=== PATIENT | male | born 1950 | race African-American/Black ===

== ENCOUNTER 2016-09-09 05:48 | Inpatient (IN) | payer MEDICARE ==
[~2016-09-09] VITALS: Ht 172.7 cm; Wt 67.9 kg
[2016-09-09] MEDS ORDERED: NIFE30TA98 PO (06:45)
[2016-09-09] MEDS ORDERED: DOXY100C PO (06:45)
[2016-09-09] MEDS ORDERED: EPOE10I SQ (06:45)
[2016-09-09] MEDS ORDERED: LEVO250T58 PO (06:45)
[2016-09-09] MEDS ORDERED: CARV12 PO (06:45)
[2016-09-09] MEDS ORDERED: BUME1TAB30 PO (06:45)
[2016-09-09] MEDS ORDERED: INSU100V SQ (06:45)
[2016-09-09] MEDS ORDERED: IPRA3AMP4 NEB (06:45)
[2016-09-09] MEDS ORDERED: TAMS0.4C32 PO (06:45)
[2016-09-09] MEDS ORDERED: PANT40TA25 PO (06:45)
[2016-09-09] MEDS ORDERED: SERT50TA12 PO (06:45)
[2016-09-09] MEDS ORDERED: MIRT15 PO (06:45)
[2016-09-09] MEDS ORDERED: VITAD5000 PO (06:45)
[2016-09-09 06:51] LABS: EOSINOPHILS % (AUTO) 1.3 % (1.0-6.0); HEMATOCRIT 30.3 % (41-53); HEMOGLOBIN 9.6 g/dL (13.5-17.5); LYMPHOCYTES # (AUTO) 0.1 K/uL (1.0-4.8); LYMPHOCYTES % (AUTO) 3.4 % (22.0-44.0); MEAN CORPUSCULAR HGB CONC 31.6 G/dL (31.0-37.0); MEAN CORPUSCULAR VOLUME 92 fL (80-100); MONOCYTES # (AUTO) 0.4 K/uL (0.1-1.0); MONOCYTES % (AUTO) 9.9 % (2.0-9.0); NEUTROPHILS # (AUTO) 3.7 K/uL (1.8-7.7); NEUTROPHILS % (AUTO) 85.4 % (40.0-70.0); PLATELET COUNT (AUTO) 60 K/uL (150-450); RED CELL DISTRIBUTION WIDTH 16.3 % (11.5-14.5); WHITE BLOOD COUNT (AUTO) 4.4 K/uL (4.5-11.0)
[2016-09-09 07:00] LABS: INR 1.2 (0.9-1.1); PROTHROMBIN TIME 12.8 SEC (9.4-11.6)
[2016-09-09 07:08] LABS: TROPONIN I 0.09 ng/mL (0.00-0.05)
[2016-09-09 07:23] LABS: ALANINE AMINOTRANSFERASE 27 U/L (12-78); ALBUMIN 2.3 g/dL (3.4-5.0); ANION GAP 9 mmol/L (8-16); ASPARTATE AMINOTRANSFERASE 28 U/L (15-37); BILIRUBIN,TOTAL 0.8 mg/dL (0.1-1.0); CARBON DIOXIDE 28 mmol/L (22-29); CHLORIDE 100 mmol/L (98-107); CREATINE KINASE MB 10.8 ng/mL (0-5); CREATINE KINASE, TOTAL 100 U/L (39-308); CREATININE 4.37 mg/dL (0.60-1.30); GLOMERULAR FILTR. RATE CALC 16 mL/min (>60); SODIUM SERUM 137 mmol/L (136-145); TOTAL PROTEIN, SERUM 5.3 g/dL (6.4-8.2); UREA NITROGEN, BLOOD 37 mg/dL (7-18)
[2016-09-09 07:24] LABS: B-TYPE NATRIURETIC PEPTIDE 97 pg/mL (0-100)
[2016-09-09 07:31] LABS: LACTIC ACID 2.1 mmol/L (0.4-2.0)
[2016-09-09] MEDS ORDERED: POTASSIUM CHLORIDE 20 MEQ ER TABLET PO ONE ×2 (07:45→21:30)
[2016-09-09] MEDS ORDERED: POTASSIUM CHL 10 MEQ/WATER 50 ML IV ONE (08:00)
[2016-09-09 08:01] LABS: GLUCOSE,POINT OF CARE 101 MG/DL (70-110)
[2016-09-09 08:02] LABS: ABG A-A DIFF O2 171.5 mmHg (10-20.0); ABG BASE EXCESS 1.3 mmol/L (-2.0-3.0); ABG HCO3 25.3 mmol/L (22.0-26.0); ABG OXYHEMOGLOBIN 95.2 % (94.0-100.0); ABG PCO2 48 mmHg (35-45); ABG PH 7.363 (7.35-7.450); TEMPERATURE, FAHRENHEIT, BG 98.6 FAHREN (96.0-98.6)
[2016-09-09 08:03] LABS: ALLEN TEST, BLOOD GAS Positive
[2016-09-09] MEDS ORDERED: IPRATROPIUM BROMIDE 0.5 MG/2.5 ML NEB SOLUTION NEB ONE (08:15)
[2016-09-09] MEDS ORDERED: ALBUTEROL SULFATE 2.5 MG/0.5 ML NEB SOLUTION NEB ONE (08:15)
[2016-09-09 08:45] LABS: REFLEX LACTIC ACID? YES YES
[2016-09-09] MEDS ORDERED: 0.9% SODIUM CHLORIDE 10 ML SYRINGE IVP PRN (09:45)
[2016-09-09] MEDS ORDERED: ACETAMINOPHEN 325 MG TABLET PO PRN ×2 (09:45→14:45)
[2016-09-09 09:57] LABS: GLUCOSE,POINT OF CARE 83 MG/DL (70-110)
[2016-09-09 12:40] VITALS: BP 132/59
[2016-09-09 13:00] LABS: ALBUMIN 2.4 g/dL (3.4-5.0); BILIRUBIN,TOTAL 0.8 mg/dL (0.1-1.0); CALCIUM, TOTAL 7.1 mg/dL (8.8-10.5); CREATININE 4.46 mg/dL (0.60-1.30); TOTAL PROTEIN, SERUM 5.5 g/dL (6.4-8.2)
[2016-09-09 13:03] LABS: POTASSIUM 2.1 mmol/L (3.5-5.1)
[2016-09-09] MEDS ORDERED: ALBUTEROL SULFATE 2.5 MG/0.5 ML NEB SOLUTION NEB PRN (14:45)
[2016-09-09] MEDS ORDERED: ZOLPIDEM TARTRATE 5 MG TABLET PO PRN (14:45)
[2016-09-09] MEDS ORDERED: HYDROCODONE/ACETAMINOPHEN 5-325 MG TABLET PO PRN (14:45)
[2016-09-09] MEDS ORDERED: BISACODYL 10 MG RECTAL RECTAL SUPPOSITORY PR PRN (14:45)
[2016-09-09] MEDS ORDERED: POTASSIUM CHLORIDE 10% 40 MEQ/30 ML LIQUID UDCUP PO ONE (15:00)
[2016-09-09] MEDS: LEVOFLOXACIN 500 MG TABLET PO SCH (16:39)
[2016-09-09] MEDS: HEPARIN SODIUM,PORCINE 5,000 UNITS/ML VIAL SQ SCH (16:39)
[2016-09-09 18:02] VITALS: BP 118/68
[2016-09-09] MEDS ORDERED: ATROPINE SULFATE 0.1 MG/ML 10 ML SYRINGE IVP ONE (18:13)
[2016-09-09] MEDS ORDERED: EPINEPHrine 1:10,000 [1 MG/10 ML] SYRINGE IVP ONE (18:13)
[2016-09-09 19:28] VITALS: BP 109/65
[2016-09-09] MEDS: IPRATROPIUM BROMIDE 0.5 MG/2.5 ML NEB SOLUTION NEB SCH (20:00)
[2016-09-09] MEDS: IPRATROPIUM BROMIDE 0.5 MG/2.5 ML NEB SOLUTION NEB PRN (20:47)
[2016-09-09] MEDS: ALBUTEROL SULFATE 2.5 MG/0.5 ML NEB SOLUTION NEB SCH (20:47)
[2016-09-09] MEDS: MIRTAZAPINE 15 MG TABLET PO SCH (22:04)
[2016-09-09] MEDS: DOXYCYCLINE 100 MG CAPSULE PO SCH (22:04)
[2016-09-09] MEDS: DOCUSATE SODIUM 100 MG CAPSULE PO SCH (22:04)
[2016-09-09 23:47] VITALS: BP 129/67
[2016-09-10] MEDS: HEPARIN SODIUM,PORCINE 5,000 UNITS/ML VIAL SQ SCH ×4 (00:19→23:33)
[2016-09-10] MEDS ORDERED: 0.9% SODIUM CHLORIDE 5 ML NEB SOLUTION NEB ONE (01:04)
[2016-09-10] MEDS: ALBUTEROL SULFATE 2.5 MG/0.5 ML NEB SOLUTION NEB SCH ×4 (01:04→19:47)
[2016-09-10] MEDS: IPRATROPIUM BROMIDE 0.5 MG/2.5 ML NEB SOLUTION NEB PRN ×2 (01:04→19:47)
[2016-09-10 01:06] LABS: GLUCOSE,POINT OF CARE 77 MG/DL (70-110)
[2016-09-10] MEDS: IPRATROPIUM BROMIDE 0.5 MG/2.5 ML NEB SOLUTION NEB SCH ×4 (01:17→19:47)
[2016-09-10 03:42] VITALS: BP 108/69
[2016-09-10] MEDS: MORPHINE SULFATE 4 MG/ML SYRINGE IVP PRN (03:44)
[2016-09-10 06:39] LABS: BASOPHILS % (AUTO) 0.1 % (0.0-2.0); EOSINOPHILS % (AUTO) 0.3 % (1.0-6.0); HEMATOCRIT 29.7 % (41-53); HEMOGLOBIN 9.5 g/dL (13.5-17.5); LYMPHOCYTES # (AUTO) 0.2 K/uL (1.0-4.8); LYMPHOCYTES % (AUTO) 4.8 % (22.0-44.0); MEAN CORPUSCULAR HEMOGLOBIN 29.2 pg (26.0-34.0); MEAN CORPUSCULAR HGB CONC 32.1 G/dL (31.0-37.0); MEAN CORPUSCULAR VOLUME 91 fL (80-100); MONOCYTES # (AUTO) 0.4 K/uL (0.1-1.0); MONOCYTES % (AUTO) 9.2 % (2.0-9.0); NEUTROPHILS # (AUTO) 3.7 K/uL (1.8-7.7); PLATELET COUNT (AUTO) 52 K/uL (150-450); RED BLOOD CELL COUNT(AUTO) 3.26 MIL/uL (4.50-5.90); RED CELL DISTRIBUTION WIDTH 16.1 % (11.5-14.5); WHITE BLOOD COUNT (AUTO) 4.4 K/uL (4.5-11.0)
[2016-09-10 07:01] LABS: NEUTROPHILS % (AUTO) 85.6 % (40.0-70.0)
[2016-09-10 07:07] LABS: ALBUMIN 2.3 g/dL (3.4-5.0); BILIRUBIN,TOTAL 0.8 mg/dL (0.1-1.0); CALCIUM, TOTAL 7.1 mg/dL (8.8-10.5); CREATININE 5.33 mg/dL (0.60-1.30); TOTAL PROTEIN, SERUM 5.3 g/dL (6.4-8.2)
[2016-09-10 07:12] LABS: POTASSIUM 2.4 mmol/L (3.5-5.1)
[2016-09-10 07:13] VITALS: BP 96/67
[2016-09-10] MEDS ORDERED: POTASSIUM CHLORIDE 20 MEQ ER TABLET PO ONE (08:45)
[2016-09-10] MEDS: DOCUSATE SODIUM 100 MG CAPSULE PO SCH ×2 (09:00→20:58)
[2016-09-10] MEDS ORDERED: PANTOPRAZOLE SODIUM 40 MG/VIAL IVP SCH (09:00)
[2016-09-10] MEDS: BUMETANIDE 1 MG TABLET PO SCH (09:38)
[2016-09-10] MEDS: TAMSULOSIN HCL 0.4 MG CAPSULE PO SCH (09:38)
[2016-09-10] MEDS: PANTOPRAZOLE SODIUM 40 MG DR TABLET PO SCH (09:38)
[2016-09-10] MEDS: LEVOFLOXACIN 500 MG TABLET PO SCH (09:39)
[2016-09-10] MEDS: SERTRALINE HCL 50 MG TABLET PO SCH (09:39)
[2016-09-10] MEDS: DOXYCYCLINE 100 MG CAPSULE PO SCH ×2 (09:39→21:13)
[2016-09-10 10:27] LABS: ABG A-A DIFF O2 387.9 mmHg (10-20.0); ABG BASE EXCESS -4.8 mmol/L (-2.0-3.0); ABG HCO3 20.3 mmol/L (22.0-26.0); ABG OXYHEMOGLOBIN 99.2 % (94.0-100.0); ABG PCO2 53 mmHg (35-45); ABG PH 7.246 (7.35-7.450); ALLEN TEST, BLOOD GAS Positive; TEMPERATURE, FAHRENHEIT, BG 97.7 FAHREN (96.0-98.6)
[2016-09-10] MEDS ORDERED: SODIUM CHLORIDE 0.9% 250 ML IV ONE ×2 (10:36→15:37)
[2016-09-10] MEDS ORDERED: SODIUM CHLORIDE 0.9% 500 ML IV ONE (10:51)
[2016-09-10] MEDS ORDERED: HEPARIN SODIUM,PORCINE 1,000 UNITS/ML VIAL ONE ×2 (11:08→11:19)
[2016-09-10] MEDS ORDERED: HEPARIN SODIUM,PORCINE 1,000 UNITS/ML VIAL IVP ONE ×2 (11:30)
[2016-09-10 14:26] LABS: EOSINOPHILS % (AUTO) 0.6 % (1.0-6.0); HEMOGLOBIN 10.2 g/dL (13.5-17.5); LYMPHOCYTES # (AUTO) 0.2 K/uL (1.0-4.8); LYMPHOCYTES % (AUTO) 5.7 % (22.0-44.0); MEAN CORPUSCULAR HGB CONC 32.1 G/dL (31.0-37.0); MEAN CORPUSCULAR VOLUME 91 fL (80-100); MONOCYTES # (AUTO) 0.2 K/uL (0.1-1.0); MONOCYTES % (AUTO) 5.6 % (2.0-9.0); NEUTROPHILS # (AUTO) 2.4 K/uL (1.8-7.7); PLATELET COUNT (AUTO) 53 K/uL (150-450); RED BLOOD CELL COUNT(AUTO) 3.53 MIL/uL (4.50-5.90); RED CELL DISTRIBUTION WIDTH 16.2 % (11.5-14.5); WHITE BLOOD COUNT (AUTO) 2.7 K/uL (4.5-11.0)
[2016-09-10 14:28] LABS: NEUTROPHILS % (AUTO) 88.1 % (40.0-70.0)
[2016-09-10 14:37] LABS: ANION GAP 15 mmol/L (8-16); CARBON DIOXIDE 22 mmol/L (22-29); CHLORIDE 99 mmol/L (98-107); CREATININE 5.58 mg/dL (0.60-1.30); GLOMERULAR FILTR. RATE CALC 12 mL/min (>60); PHOSPHORUS 6.3 mg/dL (2.5-4.9); SODIUM SERUM 136 mmol/L (136-145); UREA NITROGEN, BLOOD 54 mg/dL (7-18)
[2016-09-10 14:41] LABS: POTASSIUM 2.2 mmol/L (3.5-5.1)
[2016-09-10 15:30] LABS: LACTIC ACID 2.1 mmol/L (0.4-2.0)
[2016-09-10] MEDS: POTASSIUM CHL 10 MEQ/WATER 50 ML IV SCH ×6 (15:54→22:48)
[2016-09-10 16:20] LABS: REFLEX LACTIC ACID? YES YES
[2016-09-10 17:33] LABS: GLUCOSE,POINT OF CARE 84 MG/DL (70-110)
[2016-09-10] MEDS ORDERED: VECURONIUM BROMIDE 10 MG/VIAL IVP ONE (17:51)
[2016-09-10] MEDS: DEXTROSE 50%-WATER 25 GM/50 ML SYRINGE IVP PRN (18:15)
[2016-09-10 19:02] LABS: GLUCOSE,POINT OF CARE 84 MG/DL (70-110)
[2016-09-10 19:37] LABS: GLUCOSE,POINT OF CARE 87 MG/DL (70-110)
[2016-09-10 20:00] VITALS: BP 85/40
[2016-09-10] MEDS: PROPOFOL 1000 MG/ISO-OSM 100 ML IV PRN (20:29)
[2016-09-10] MEDS: NOREPINEPHRINE 4 MG/D5%-WATER 250 ML IV PRN (20:37)
[2016-09-10] MEDS: MIRTAZAPINE 15 MG TABLET PO SCH (21:13)
[2016-09-10 21:20] LABS: CALCIUM, TOTAL 7.1 mg/dL (8.8-10.5); CREATININE 5.91 mg/dL (0.60-1.30); POTASSIUM 3.1 mmol/L (3.5-5.1)
[2016-09-10] MEDS: FentaNYL CITRATE PF 500 MCG in DEXTROSE 5%-WATER 90 ML IV PRN (21:44)
[2016-09-10] MEDS ORDERED: PNEUMOCOCCAL VACCINE POLYVALENT 0.5 ML VIAL [PPSV23] IM ONE (23:45)
[2016-09-10] MEDS: INSULIN ASPART 100 UNITS/ML SQ PRN (23:45)
[2016-09-11] VITALS: BP 105/40
[2016-09-11] MEDS ORDERED: IOVERSOL 350 MG/ML 100 ML VIAL ONE (00:08)
[2016-09-11 01:37] LABS: GLUCOSE COMMENT 1 Juice/Food/D50 Given; GLUCOSE,POINT OF CARE 66 MG/DL (70-110)
[2016-09-11] MEDS: PROPOFOL 1000 MG/ISO-OSM 100 ML IV PRN ×2 (01:48→08:35)
[2016-09-11] MEDS: IPRATROPIUM BROMIDE 0.5 MG/2.5 ML NEB SOLUTION NEB PRN ×2 (02:36→09:06)
[2016-09-11] MEDS: ALBUTEROL SULFATE 2.5 MG/0.5 ML NEB SOLUTION NEB SCH ×4 (02:36→19:35)
[2016-09-11 04:00] VITALS: BP 106/42
[2016-09-11] MEDS: NOREPINEPHRINE 4 MG/D5%-WATER 250 ML IV PRN ×2 (04:58→17:44)
[2016-09-11 05:07] LABS: EOSINOPHILS % (AUTO) 0.2 % (1.0-6.0); HEMATOCRIT 29.9 % (41-53); HEMOGLOBIN 9.6 g/dL (13.5-17.5); LYMPHOCYTES # (AUTO) 0.3 K/uL (1.0-4.8); MEAN CORPUSCULAR HEMOGLOBIN 29.1 pg (26.0-34.0); MEAN CORPUSCULAR HGB CONC 32.1 G/dL (31.0-37.0); MEAN CORPUSCULAR VOLUME 91 fL (80-100); MONOCYTES # (AUTO) 0.7 K/uL (0.1-1.0); MONOCYTES % (AUTO) 10.6 % (2.0-9.0); NEUTROPHILS # (AUTO) 5.7 K/uL (1.8-7.7); PLATELET COUNT (AUTO) 49 K/uL (150-450); RED CELL DISTRIBUTION WIDTH 15.7 % (11.5-14.5); WHITE BLOOD COUNT (AUTO) 6.7 K/uL (4.5-11.0)
[2016-09-11] MEDS: INSULIN ASPART 100 UNITS/ML SQ PRN ×2 (05:13→23:35)
[2016-09-11 05:16] LABS: NEUTROPHILS % (AUTO) 85.2 % (40.0-70.0)
[2016-09-11 05:18] LABS: ALBUMIN 2.1 g/dL (3.4-5.0); CREATININE 5.95 mg/dL (0.60-1.30)
[2016-09-11 05:18] LABS: GLUCOSE,POINT OF CARE 66 MG/DL (70-110)
[2016-09-11 05:18] LABS: GLUCOSE,POINT OF CARE 98 MG/DL (70-110)
[2016-09-11 05:18] LABS: GLUCOSE,POINT OF CARE 126 MG/DL (70-110)
[2016-09-11 05:18] LABS: GLUCOSE,POINT OF CARE 130 MG/DL (70-110)
[2016-09-11 08:00] VITALS: BP 101/36
[2016-09-11] MEDS: IPRATROPIUM BROMIDE 0.5 MG/2.5 ML NEB SOLUTION NEB SCH ×3 (08:00→19:35)
[2016-09-11] MEDS: HEPARIN SODIUM,PORCINE 5,000 UNITS/ML VIAL SQ SCH ×3 (08:00→23:36)
[2016-09-11] MEDS: DOXYCYCLINE 100 MG CAPSULE PO SCH ×2 (08:34→20:25)
[2016-09-11] MEDS: PANTOPRAZOLE SODIUM 40 MG DR TABLET PO SCH (08:34)
[2016-09-11] MEDS: DOCUSATE SODIUM 100 MG CAPSULE PO SCH ×2 (08:34→20:16)
[2016-09-11] MEDS: BUMETANIDE 1 MG TABLET PO SCH (08:34)
[2016-09-11] MEDS: TAMSULOSIN HCL 0.4 MG CAPSULE PO SCH (08:34)
[2016-09-11] MEDS: CHOLECALCIFEROL (VIT D3) 5,000 UNITS CAPSULE PO SCH (08:34)
[2016-09-11] MEDS: LEVOFLOXACIN 500 MG TABLET PO SCH (08:34)
[2016-09-11] MEDS: EPOETIN ALFA 10,000 UNITS/ML VIAL SQ SCH (08:35)
[2016-09-11] MEDS: SERTRALINE HCL 50 MG TABLET PO SCH (08:35)
[2016-09-11] MEDS ORDERED: ALBUMIN HUMAN 25%-25GM/100ML 100 ML IV PRN (11:30)
[2016-09-11] MEDS ORDERED: POTASSIUM CHLORIDE 10% 40 MEQ/30 ML LIQUID UDCUP NG ONE (11:30)
[2016-09-11 12:00] VITALS: BP 113/26
[2016-09-11] MEDS ORDERED: SODIUM CHLORIDE 0.9% 1,000 ML IV ONE (13:33)
[2016-09-11] MEDS ORDERED: LEVO500 PO (14:09)
[2016-09-11] MEDS: FentaNYL CITRATE PF 500 MCG in DEXTROSE 5%-WATER 90 ML IV PRN (14:35)
[2016-09-11 16:00] VITALS: BP 112/44
[2016-09-11] MEDS ORDERED: HEPARIN SODIUM,PORCINE 1,000 UNITS/ML VIAL IVP ONE (17:16)
[2016-09-11 18:12] LABS: GLUCOSE,POINT OF CARE 89 MG/DL (70-110)
[2016-09-11 19:08] LABS: GLUCOSE,POINT OF CARE 100 MG/DL (70-110)
[2016-09-11 19:21] LABS: GLUCOSE,POINT OF CARE 115 MG/DL (70-110)
[2016-09-11 20:00] VITALS: BP 153/45
[2016-09-11] MEDS: MIRTAZAPINE 15 MG TABLET PO SCH (20:25)
[2016-09-12] VITALS (7 sets, daily range): BP systolic 86–140; BP diastolic 32–51
[2016-09-12] MEDS: FentaNYL CITRATE PF 500 MCG in DEXTROSE 5%-WATER 90 ML IV PRN (01:37)
[2016-09-12] MEDS: LORazepam 2 MG/ML VIAL IVP PRN ×2 (01:44→07:54)
[2016-09-12] MEDS: IPRATROPIUM BROMIDE 0.5 MG/2.5 ML NEB SOLUTION NEB SCH ×4 (01:54→19:19)
[2016-09-12] MEDS: ALBUTEROL SULFATE 2.5 MG/0.5 ML NEB SOLUTION NEB SCH ×4 (01:54→19:19)
[2016-09-12] MEDS ORDERED: SODIUM CHLORIDE 0.9% 250 ML IV ONE (05:00)
[2016-09-12 05:17] LABS: EOSINOPHILS % (AUTO) 1.7 % (1.0-6.0); HEMATOCRIT 28.4 % (41-53); HEMOGLOBIN 9.1 g/dL (13.5-17.5); LYMPHOCYTES # (AUTO) 0.2 K/uL (1.0-4.8); LYMPHOCYTES % (AUTO) 4.9 % (22.0-44.0); MEAN CORPUSCULAR HEMOGLOBIN 28.9 pg (26.0-34.0); MEAN CORPUSCULAR VOLUME 90 fL (80-100); MONOCYTES # (AUTO) 0.8 K/uL (0.1-1.0); MONOCYTES % (AUTO) 16.5 % (2.0-9.0); NEUTROPHILS # (AUTO) 3.8 K/uL (1.8-7.7); NEUTROPHILS % (AUTO) 76.9 % (40.0-70.0); PLATELET COUNT (AUTO) 48 K/uL (150-450); RED BLOOD CELL COUNT(AUTO) 3.14 MIL/uL (4.50-5.90); RED CELL DISTRIBUTION WIDTH 16.6 % (11.5-14.5)
[2016-09-12 05:35] LABS: ALBUMIN 2.1 g/dL (3.4-5.0); BILIRUBIN,TOTAL 0.8 mg/dL (0.1-1.0); CALCIUM, TOTAL 7.7 mg/dL (8.8-10.5); CREATININE 4.25 mg/dL (0.60-1.30); TOTAL PROTEIN, SERUM 5.1 g/dL (6.4-8.2)
[2016-09-12] MEDS: INSULIN ASPART 100 UNITS/ML SQ PRN (05:46)
[2016-09-12] MEDS: DOCUSATE SODIUM 100 MG CAPSULE PO SCH ×2 (07:29→20:44)
[2016-09-12] MEDS: HEPARIN SODIUM,PORCINE 5,000 UNITS/ML VIAL SQ SCH ×3 (07:29→20:48)
[2016-09-12] MEDS: TAMSULOSIN HCL 0.4 MG CAPSULE PO SCH (07:54)
[2016-09-12] MEDS: CHOLECALCIFEROL (VIT D3) 5,000 UNITS CAPSULE PO SCH (07:54)
[2016-09-12] MEDS: PANTOPRAZOLE SODIUM 40 MG DR TABLET PO SCH (07:54)
[2016-09-12] MEDS: LEVOFLOXACIN 500 MG TABLET PO SCH (07:54)
[2016-09-12] MEDS: DOXYCYCLINE 100 MG CAPSULE PO SCH ×2 (07:54→20:44)
[2016-09-12] MEDS: POVIDONE-IODINE 10% 120 ML SOLUTION TP SCH (07:55)
[2016-09-12] MEDS: SERTRALINE HCL 50 MG TABLET PO SCH (07:55)
[2016-09-12 08:12] LABS: GLUCOSE,POINT OF CARE 129 MG/DL (70-110)
[2016-09-12 08:16] LABS: GLUCOSE COMMENT 1 Received Meds; GLUCOSE,POINT OF CARE 154 MG/DL (70-110)
[2016-09-12] MEDS: POTASSIUM CHLORIDE 10% 40 MEQ/30 ML LIQUID UDCUP NG SCH ×3 (13:04→20:44)
[2016-09-12 14:18] LABS: ABG A-A DIFF O2 91.6 mmHg (10-20.0); ABG BASE EXCESS -3.5 mmol/L (-2.0-3.0); ABG HCO3 21.9 mmol/L (22.0-26.0); ABG OXYHEMOGLOBIN 97.7 % (94.0-100.0); ABG PCO2 29 mmHg (35-45); ABG PH 7.459 (7.35-7.450); TEMPERATURE, FAHRENHEIT, BG 98.6 FAHREN (96.0-98.6)
[2016-09-12] MEDS: NOREPINEPHRINE 4 MG/D5%-WATER 250 ML IV PRN (15:12)
[2016-09-12] MEDS: MIRTAZAPINE 15 MG TABLET PO SCH (23:18)
[2016-09-13] VITALS (8 sets, daily range): BP systolic 100–139; BP diastolic 41–59
[2016-09-13] MEDS: IPRATROPIUM BROMIDE 0.5 MG/2.5 ML NEB SOLUTION NEB SCH ×4 (02:31→19:46)
[2016-09-13] MEDS: ALBUTEROL SULFATE 2.5 MG/0.5 ML NEB SOLUTION NEB SCH ×4 (02:31→19:46)
[2016-09-13] MEDS: FentaNYL CITRATE PF 500 MCG in DEXTROSE 5%-WATER 90 ML IV PRN (02:59)
[2016-09-13] MEDS ORDERED: SODIUM CHLORIDE 0.9% 250 ML IV ONE (04:52)
[2016-09-13 05:04] LABS: BASOPHILS % (AUTO) 0.1 % (0.0-2.0); EOSINOPHILS # (AUTO) 0.06 K/uL (0.00-0.70); EOSINOPHILS % (AUTO) 1.83 % (1.0-6.0); HEMATOCRIT 25.1 % (41-53); HEMOGLOBIN 8.5 g/dL (13.5-17.5); LYMPHOCYTES # (AUTO) 0.2 K/uL (1.0-4.8); LYMPHOCYTES % (AUTO) 4.9 % (22.0-44.0); MEAN CORPUSCULAR HEMOGLOBIN 29.8 pg (26.0-34.0); MEAN CORPUSCULAR HGB CONC 33.8 G/dL (31.0-37.0); MEAN CORPUSCULAR VOLUME 88 fL (80-100); MONOCYTES # (AUTO) 0.4 K/uL (0.1-1.0); NEUTROPHILS # (AUTO) 2.5 K/uL (1.8-7.7); NEUTROPHILS % (AUTO) 81.2 % (40.0-70.0); RED BLOOD CELL COUNT(AUTO) 2.84 MIL/uL (4.50-5.90); RED CELL DISTRIBUTION WIDTH 16.4 % (11.5-14.5)
[2016-09-13 05:17] LABS: BILIRUBIN,TOTAL 0.6 mg/dL (0.1-1.0); CALCIUM, TOTAL 7.7 mg/dL (8.8-10.5); CREATININE 5.13 mg/dL (0.60-1.30); POTASSIUM 3.6 mmol/L (3.5-5.1); TOTAL PROTEIN, SERUM 5.1 g/dL (6.4-8.2)
[2016-09-13 07:32] LABS: PLATELET COUNT (AUTO) 28 K/uL (150-450)
[2016-09-13] MEDS: HEPARIN SODIUM,PORCINE 5,000 UNITS/ML VIAL SQ SCH ×2 (09:00→20:30)
[2016-09-13] MEDS: DOCUSATE SODIUM 100 MG CAPSULE PO SCH ×2 (09:00→20:30)
[2016-09-13] MEDS: POVIDONE-IODINE 10% 120 ML SOLUTION TP SCH (09:37)
[2016-09-13] MEDS ORDERED: CefTAZidime PENTAHYDRATE 1 GM in DEXTROSE 5%-WATER 50 ML IV SCH (09:45)
[2016-09-13] MEDS ORDERED: HEPARIN SODIUM,PORCINE 1,000 UNITS/ML VIAL IVP ONE ×3 (09:45→17:12)
[2016-09-13] MEDS ORDERED: VANCOMYCIN HCL 500 MG in DEXTROSE 5%-WATER 100 ML IV SCH (09:45)
[2016-09-13] MEDS ORDERED: VANCOMYCIN HCL 1 GM/D5% WATER 200 ML IV ONE (10:00)
[2016-09-13] MEDS ORDERED: VANCOMYCIN HCL 1 GM/D5% WATER 200 ML IV PRN (10:00)
[2016-09-13] MEDS ORDERED: SODIUM CHLORIDE 0.9% 2,000 ML IV ONE (11:09)
[2016-09-13 11:17] LABS: GLUCOSE,POINT OF CARE 109 MG/DL (70-110)
[2016-09-13 11:17] LABS: GLUCOSE,POINT OF CARE 132 MG/DL (70-110)
[2016-09-13 11:22] LABS: GLUCOSE,POINT OF CARE 114 MG/DL (70-110)
[2016-09-13] MEDS: TAMSULOSIN HCL 0.4 MG CAPSULE PO SCH (11:29)
[2016-09-13] MEDS: PANTOPRAZOLE SODIUM 40 MG DR TABLET PO SCH (11:30)
[2016-09-13] MEDS: CHOLECALCIFEROL (VIT D3) 5,000 UNITS CAPSULE PO SCH (11:30)
[2016-09-13] MEDS: EPOETIN ALFA 10,000 UNITS/ML VIAL SQ SCH (11:31)
[2016-09-13] MEDS: SERTRALINE HCL 50 MG TABLET PO SCH (11:31)
[2016-09-13 16:32] LABS: ABG A-A DIFF O2 76.1 mmHg (10-20.0); ABG BASE EXCESS -1.6 mmol/L (-2.0-3.0); ABG HCO3 23.3 mmol/L (22.0-26.0); ABG OXYHEMOGLOBIN 97.9 % (94.0-100.0); ABG PCO2 38 mmHg (35-45); ABG PH 7.405 (7.35-7.450); ALLEN TEST, BLOOD GAS Positive; TEMPERATURE, FAHRENHEIT, BG 97.9 FAHREN (96.0-98.6)
[2016-09-13 18:17] LABS: GLUCOSE,POINT OF CARE 123 MG/DL (70-110)
[2016-09-13 19:40] LABS: ABG A-A DIFF O2 32.4 mmHg (10-20.0); ABG BASE EXCESS -3.4 mmol/L (-2.0-3.0); ABG HCO3 21.9 mmol/L (22.0-26.0); ABG OXYHEMOGLOBIN 97.7 % (94.0-100.0); ABG PCO2 38 mmHg (35-45); ABG PH 7.379 (7.35-7.450); ALLEN TEST, BLOOD GAS NO; TEMPERATURE, FAHRENHEIT, BG 98.6 FAHREN (96.0-98.6)
[2016-09-13] MEDS: MIRTAZAPINE 15 MG TABLET PO SCH (20:30)
[2016-09-14] VITALS (8 sets, daily range): BP systolic 95–119; BP diastolic 38–82
[2016-09-14] MEDS: ALBUTEROL SULFATE 2.5 MG/0.5 ML NEB SOLUTION NEB SCH ×4 (02:17→19:17)
[2016-09-14] MEDS: IPRATROPIUM BROMIDE 0.5 MG/2.5 ML NEB SOLUTION NEB SCH ×4 (02:17→19:17)
[2016-09-14 04:57] LABS: GLUCOSE,POINT OF CARE 129 MG/DL (70-110)
[2016-09-14 04:57] LABS: GLUCOSE,POINT OF CARE 96 MG/DL (70-110)
[2016-09-14 05:37] LABS: EOSINOPHILS # (AUTO) 0.03 K/uL (0.00-0.70); EOSINOPHILS % (AUTO) 1.18 % (1.0-6.0); HEMATOCRIT 23.9 % (41-53); HEMOGLOBIN 7.9 g/dL (13.5-17.5); LYMPHOCYTES # (AUTO) 0.1 K/uL (1.0-4.8); LYMPHOCYTES % (AUTO) 4.2 % (22.0-44.0); MEAN CORPUSCULAR HGB CONC 33.2 G/dL (31.0-37.0); MEAN CORPUSCULAR VOLUME 90 fL (80-100); MONOCYTES # (AUTO) 0.3 K/uL (0.1-1.0); MONOCYTES % (AUTO) 9.6 % (2.0-9.0); NEUTROPHILS # (AUTO) 2.2 K/uL (1.8-7.7); PLATELET COUNT (AUTO) 22 K/uL (150-450); RED BLOOD CELL COUNT(AUTO) 2.65 MIL/uL (4.50-5.90); RED CELL DISTRIBUTION WIDTH 16.7 % (11.5-14.5); WHITE BLOOD COUNT (AUTO) 2.6 K/uL (4.5-11.0)
[2016-09-14 05:43] LABS: ALBUMIN 1.9 g/dL (3.4-5.0); BILIRUBIN,TOTAL 0.6 mg/dL (0.1-1.0); CALCIUM, TOTAL 7.9 mg/dL (8.8-10.5); CREATININE 3.68 mg/dL (0.60-1.30); TOTAL PROTEIN, SERUM 4.6 g/dL (6.4-8.2)
[2016-09-14 06:14] LABS: POTASSIUM 2.6 mmol/L (3.5-5.1)
[2016-09-14 06:18] LABS: GLUCOSE,POINT OF CARE 95 MG/DL (70-110)
[2016-09-14 06:18] LABS: GLUCOSE,POINT OF CARE 80 MG/DL (70-110)
[2016-09-14] MEDS: POTASSIUM CHL 10 MEQ/WATER 50 ML IV SCH ×4 (06:29→10:29)
[2016-09-14] MEDS ORDERED: POTASSIUM CHLORIDE 10% 40 MEQ/30 ML LIQUID UDCUP PO ONE (06:30)
[2016-09-14] MEDS: POVIDONE-IODINE 10% 120 ML SOLUTION TP SCH (08:06)
[2016-09-14] MEDS: HEPARIN SODIUM,PORCINE 5,000 UNITS/ML VIAL SQ SCH (08:06)
[2016-09-14] MEDS: DOCUSATE SODIUM 100 MG CAPSULE PO SCH ×2 (08:06→20:21)
[2016-09-14] MEDS: SERTRALINE HCL 50 MG TABLET PO SCH (09:00)
[2016-09-14] MEDS: CHOLECALCIFEROL (VIT D3) 5,000 UNITS CAPSULE PO SCH (09:00)
[2016-09-14] MEDS: PANTOPRAZOLE SODIUM 40 MG DR TABLET PO SCH (09:00)
[2016-09-14] MEDS: TAMSULOSIN HCL 0.4 MG CAPSULE PO SCH (09:00)
[2016-09-14 09:07] LABS: ABG A-A DIFF O2 27.1 mmHg (10-20.0); ABG BASE EXCESS -2.1 mmol/L (-2.0-3.0); ABG HCO3 22.8 mmol/L (22.0-26.0); ABG OXYHEMOGLOBIN 97.5 % (94.0-100.0); ABG PCO2 41 mmHg (35-45); ABG PH 7.373 (7.35-7.450); TEMPERATURE, FAHRENHEIT, BG 97.7 FAHREN (96.0-98.6)
[2016-09-14 09:08] LABS: ALLEN TEST, BLOOD GAS Positive
[2016-09-14] MEDS ORDERED: VANCOMYCIN HCL 1 GM/D5% WATER 200 ML IV ONE (10:00)
[2016-09-14 10:43] LABS: HEPATITIS C AB SCREEN <0.1 s/co ratio (0.0-0.9)
[2016-09-14] MEDS: MORPHINE SULFATE 4 MG/ML SYRINGE IVP PRN (11:05)
[2016-09-14] MEDS: PANTOPRAZOLE SODIUM 80 MG in SODIUM CHLORIDE 0.9% 100 ML IV SCH ×2 (12:15→22:49)
[2016-09-14] MEDS ORDERED: SODIUM CHLORIDE 0.9% 100 ML ONE (15:23)
[2016-09-14] MEDS ORDERED: IOVERSOL 350 MG/ML 100 ML VIAL ONE (15:23)
[2016-09-14] MEDS ORDERED: CefTAZidime PENTAHYDRATE 1 GM in DEXTROSE 5%-WATER 50 ML IV PRN (15:30)
[2016-09-14] MEDS ORDERED: CefTAZidime PENTAHYDRATE 1 GM in DEXTROSE 5%-WATER 50 ML IV ONE (16:00)
[2016-09-14 18:00] LABS: INR 1.2 (0.9-1.1); PROTHROMBIN TIME 12.6 SEC (9.4-11.6)
[2016-09-14] MEDS: DEXTROSE 50%-WATER 25 GM/50 ML SYRINGE IVP PRN ×2 (19:08→23:15)
[2016-09-14] MEDS ORDERED: ALBUMIN HUMAN 25%-25GM/100ML 100 ML IV PRN (20:00)
[2016-09-14] MEDS: MIRTAZAPINE 15 MG TABLET PO SCH (20:41)
[2016-09-14] MEDS ORDERED: DEXTROSE 5%-WATER 500 ML IV ONE (21:23)
[2016-09-14] MEDS: INSULIN ASPART 100 UNITS/ML SQ PRN (23:13)
[2016-09-14 23:17] LABS: GLUCOSE COMMENT 1 Received Meds; GLUCOSE,POINT OF CARE 68 MG/DL (70-110)
[2016-09-15] VITALS (8 sets, daily range): BP systolic 88–118; BP diastolic 35–55
[2016-09-15 00:16] LABS: GLUCOSE,POINT OF CARE 108 MG/DL (70-110)
[2016-09-15] MEDS: MORPHINE SULFATE 4 MG/ML SYRINGE IVP PRN (02:40)
[2016-09-15] MEDS: IPRATROPIUM BROMIDE 0.5 MG/2.5 ML NEB SOLUTION NEB SCH ×4 (02:47→19:35)
[2016-09-15] MEDS: ALBUTEROL SULFATE 2.5 MG/0.5 ML NEB SOLUTION NEB SCH ×4 (02:47→19:35)
[2016-09-15] MEDS: DEXTROSE 50%-WATER 25 GM/50 ML SYRINGE IVP PRN (04:41)
[2016-09-15 05:26] LABS: HEMATOCRIT 22.4 % (41-53); HEMOGLOBIN 7.5 g/dL (13.5-17.5); MEAN CORPUSCULAR HEMOGLOBIN 30.1 pg (26.0-34.0); MEAN CORPUSCULAR HGB CONC 33.6 G/dL (31.0-37.0); MEAN CORPUSCULAR VOLUME 90 fL (80-100); PLATELET COUNT (AUTO) 21 K/uL (150-450); RED CELL DISTRIBUTION WIDTH 16.7 % (11.5-14.5); WHITE BLOOD COUNT (AUTO) 2.9 K/uL (4.5-11.0)
[2016-09-15 05:29] LABS: ALBUMIN 2.2 g/dL (3.4-5.0); BILIRUBIN,TOTAL 0.6 mg/dL (0.1-1.0); CALCIUM, TOTAL 7.6 mg/dL (8.8-10.5); CREATININE 4.39 mg/dL (0.60-1.30); TOTAL PROTEIN, SERUM 4.7 g/dL (6.4-8.2)
[2016-09-15 05:48] LABS: GLUCOSE,POINT OF CARE 82 MG/DL (70-110)
[2016-09-15 05:48] LABS: GLUCOSE,POINT OF CARE 125 MG/DL (70-110)
[2016-09-15 05:48] LABS: GLUCOSE COMMENT 1 Received Meds; GLUCOSE,POINT OF CARE 52 MG/DL (70-110)
[2016-09-15 05:48] LABS: GLUCOSE COMMENT 1 Juice/Food/D50 Given; GLUCOSE,POINT OF CARE 65 MG/DL (70-110)
[2016-09-15] MEDS: INSULIN ASPART 100 UNITS/ML SQ PRN (05:50)
[2016-09-15 06:12] LABS: POTASSIUM 2.9 mmol/L (3.5-5.1)
[2016-09-15] MEDS: PANTOPRAZOLE SODIUM 80 MG in SODIUM CHLORIDE 0.9% 100 ML IV SCH ×2 (07:27→20:20)
[2016-09-15] MEDS: CHOLECALCIFEROL (VIT D3) 5,000 UNITS CAPSULE PO SCH (08:04)
[2016-09-15] MEDS: SERTRALINE HCL 50 MG TABLET PO SCH (08:04)
[2016-09-15] MEDS: TAMSULOSIN HCL 0.4 MG CAPSULE PO SCH (08:04)
[2016-09-15] MEDS: DOCUSATE SODIUM 100 MG CAPSULE PO SCH ×2 (08:04→21:00)
[2016-09-15] MEDS ORDERED: SODIUM CHLORIDE 0.9% 2,000 ML IV ONE (08:23)
[2016-09-15] MEDS: EPOETIN ALFA 10,000 UNITS/ML VIAL SQ SCH (09:14)
[2016-09-15] MEDS: POVIDONE-IODINE 10% 120 ML SOLUTION TP SCH (09:14)
[2016-09-15] MEDS ORDERED: HEPARIN SODIUM,PORCINE 1,000 UNITS/ML VIAL IVP ONE ×2 (09:30)
[2016-09-15 09:40] LABS: ALBUMIN (IFE & ELECTROPHOR) 2.4 g/dL (2.9-4.4); ALBUMIN/GLOBULIN RATIO (IFE) 1.3 (0.7-1.7); ALPHA-2 (IFE & PEP) 0.4 g/dL (0.4-1.0); IGG (IMMUNOFIXATION) 881 mg/dL (700-1600); M-SPIKE (IEP) Not Observed g/dL (Not Observed); TOTAL PROTEIN 4.4 g/dL (6.0-8.5)
[2016-09-15] MEDS ORDERED: SODIUM CITRATE 4% CATH FLUSH 5 ML SYRINGE IVP ONE ×2 (09:45)
[2016-09-15 09:59] LABS: BAND NEUTROPHILS % (MANUAL) 14 % (1-5); LYMPHOCYTES % (MANUAL) 10 % (22-44); RBC MORPHOLOGY COMMENT NORMAL RBC MORPH; TOTAL CELLS COUNTED 100
[2016-09-15] MEDS: [UNRECOGNIZED DRUG - REMARK] MISC SCH (14:00)
[2016-09-15 14:06] LABS: CALCIUM, TOTAL 8.2 mg/dL (8.8-10.5); CREATININE 2.32 mg/dL (0.60-1.30)
[2016-09-15 14:35] LABS: POTASSIUM 2.9 mmol/L (3.5-5.1)
[2016-09-15] MEDS: POTASSIUM CHL 10 MEQ/WATER 50 ML IV SCH ×2 (15:48→16:24)
[2016-09-15] MEDS: MIRTAZAPINE 15 MG TABLET PO SCH (21:20)
[2016-09-16] VITALS: BP 102/38
[2016-09-16] MEDS: IPRATROPIUM BROMIDE 0.5 MG/2.5 ML NEB SOLUTION NEB SCH ×4 (02:00→19:40)
[2016-09-16] MEDS: ALBUTEROL SULFATE 2.5 MG/0.5 ML NEB SOLUTION NEB SCH ×4 (02:00→19:40)
[2016-09-16 04:00] VITALS: BP 120/45
[2016-09-16 05:11] LABS: EOSINOPHILS % (AUTO) 0.6 % (1.0-6.0); HEMATOCRIT 22.8 % (41-53); HEMOGLOBIN 7.7 g/dL (13.5-17.5); LYMPHOCYTES # (AUTO) 0.2 K/uL (1.0-4.8); LYMPHOCYTES % (AUTO) 5.3 % (22.0-44.0); MEAN CORPUSCULAR HEMOGLOBIN 30.1 pg (26.0-34.0); MEAN CORPUSCULAR HGB CONC 33.7 G/dL (31.0-37.0); MEAN CORPUSCULAR VOLUME 90 fL (80-100); MONOCYTES # (AUTO) 0.3 K/uL (0.1-1.0); MONOCYTES % (AUTO) 9.9 % (2.0-9.0); NEUTROPHILS # (AUTO) 2.7 K/uL (1.8-7.7); NEUTROPHILS % (AUTO) 84.2 % (40.0-70.0); RED BLOOD CELL COUNT(AUTO) 2.55 MIL/uL (4.50-5.90); RED CELL DISTRIBUTION WIDTH 16.2 % (11.5-14.5); WHITE BLOOD COUNT (AUTO) 3.3 K/uL (4.5-11.0)
[2016-09-16 05:20] LABS: INR 1.4 (0.9-1.1); PROTHROMBIN TIME 14.4 SEC (9.4-11.6)
[2016-09-16] MEDS: PANTOPRAZOLE SODIUM 80 MG in SODIUM CHLORIDE 0.9% 100 ML IV SCH ×2 (05:29→15:29)
[2016-09-16 05:48] LABS: BILIRUBIN,TOTAL 0.8 mg/dL (0.1-1.0); CALCIUM, TOTAL 7.9 mg/dL (8.8-10.5); CREATININE 3.34 mg/dL (0.60-1.30); TOTAL PROTEIN, SERUM 4.8 g/dL (6.4-8.2)
[2016-09-16 06:08] LABS: POTASSIUM 2.5 mmol/L (3.5-5.1)
[2016-09-16] MEDS ORDERED: POTASSIUM CHLORIDE 20 MEQ ER TABLET PO ONE (07:00)
[2016-09-16 07:31] LABS: PLATELET COUNT (AUTO) 22 K/uL (150-450)
[2016-09-16 08:00] VITALS: BP 127/65
[2016-09-16] MEDS: POTASSIUM CHL 10 MEQ/WATER 50 ML IV SCH ×4 (08:34→10:30)
[2016-09-16] MEDS: TAMSULOSIN HCL 0.4 MG CAPSULE PO SCH (08:35)
[2016-09-16] MEDS: CHOLECALCIFEROL (VIT D3) 5,000 UNITS CAPSULE PO SCH (08:36)
[2016-09-16] MEDS: SERTRALINE HCL 50 MG TABLET PO SCH (08:36)
[2016-09-16] MEDS: DOCUSATE SODIUM 100 MG CAPSULE PO SCH ×2 (09:00→20:48)
[2016-09-16] MEDS: [UNRECOGNIZED DRUG - REMARK] MISC SCH (09:00)
[2016-09-16] MEDS: POVIDONE-IODINE 10% 120 ML SOLUTION TP SCH (09:03)
[2016-09-16 13:08] LABS: GLUCOSE,POINT OF CARE 71 MG/DL (70-110)
[2016-09-16 13:08] LABS: GLUCOSE,POINT OF CARE 105 MG/DL (70-110)
[2016-09-16 13:08] LABS: GLUCOSE,POINT OF CARE 89 MG/DL (70-110)
[2016-09-16 13:08] LABS: GLUCOSE COMMENT 1 Received Meds; GLUCOSE,POINT OF CARE 75 MG/DL (70-110)
[2016-09-16 14:06] LABS: GLUCOSE,POINT OF CARE 104 MG/DL (70-110)
[2016-09-16 15:06] VITALS: BP 136/61
[2016-09-16] MEDS ORDERED: SODIUM CHLORIDE 0.9% 100 ML ONE ×2 (15:17→15:48)
[2016-09-16] MEDS ORDERED: POTASSIUM CHL 10 MEQ/WATER 50 ML IV ONE ×2 (16:00→17:00)
[2016-09-16 18:32] LABS: GLUCOSE,POINT OF CARE 133 MG/DL (70-110)
[2016-09-16 19:44] VITALS: BP 114/70
[2016-09-16] MEDS: MIRTAZAPINE 15 MG TABLET PO SCH (20:48)
[2016-09-16 21:26] LABS: GLUCOSE,POINT OF CARE 120 MG/DL (70-110)
[2016-09-16 23:25] VITALS: BP 144/73
[2016-09-17] MEDS: PANTOPRAZOLE SODIUM 80 MG in SODIUM CHLORIDE 0.9% 100 ML IV SCH ×2 (02:04→15:08)
[2016-09-17] MEDS: ALBUTEROL SULFATE 2.5 MG/0.5 ML NEB SOLUTION NEB SCH ×4 (02:31→21:14)
[2016-09-17] MEDS: IPRATROPIUM BROMIDE 0.5 MG/2.5 ML NEB SOLUTION NEB SCH ×4 (02:31→21:14)
[2016-09-17 04:01] VITALS: BP 126/60
[2016-09-17] MEDS ORDERED: SODIUM CHLORIDE 0.9% 500 ML IV ONE (05:44)
[2016-09-17] MEDS ORDERED: VANCOMYCIN HCL 1 GM/D5% WATER 200 ML IV ONE (06:00)
[2016-09-17 08:00] LABS: ALBUMIN 1.9 g/dL (3.4-5.0); BILIRUBIN,TOTAL 0.7 mg/dL (0.1-1.0); CALCIUM, TOTAL 7.4 mg/dL (8.8-10.5); CREATININE 4.42 mg/dL (0.60-1.30); MAGNESIUM 1.4 mg/dL (1.80-2.40); TOTAL PROTEIN, SERUM 4.3 g/dL (6.4-8.2)
[2016-09-17 08:22] LABS: BASOPHILS % (AUTO) 0.1 % (0.0-2.0); EOSINOPHILS % (AUTO) 1.3 % (1.0-6.0); HEMATOCRIT 23.8 % (41-53); HEMOGLOBIN 7.9 g/dL (13.5-17.5); LYMPHOCYTES # (AUTO) 0.2 K/uL (1.0-4.8); LYMPHOCYTES % (AUTO) 5.7 % (22.0-44.0); MEAN CORPUSCULAR HEMOGLOBIN 29.9 pg (26.0-34.0); MEAN CORPUSCULAR HGB CONC 33.1 G/dL (31.0-37.0); MEAN CORPUSCULAR VOLUME 90 fL (80-100); MONOCYTES # (AUTO) 0.3 K/uL (0.1-1.0); MONOCYTES % (AUTO) 7.6 % (2.0-9.0); NEUTROPHILS # (AUTO) 3.4 K/uL (1.8-7.7); RED BLOOD CELL COUNT(AUTO) 2.63 MIL/uL (4.50-5.90); RED CELL DISTRIBUTION WIDTH 16.1 % (11.5-14.5)
[2016-09-17 08:23] LABS: POTASSIUM 2.2 mmol/L (3.5-5.1)
[2016-09-17 08:27] LABS: NEUTROPHILS % (AUTO) 85.3 % (40.0-70.0)
[2016-09-17 08:29] VITALS: BP 118/66
[2016-09-17 08:56] LABS: INR 1.4 (0.9-1.1); PROTHROMBIN TIME 14.7 SEC (9.4-11.6)
[2016-09-17 08:57] LABS: GLUCOSE,POINT OF CARE 84 MG/DL (70-110)
[2016-09-17] MEDS ORDERED: MAGNESIUM SULFATE 2 GM in DEXTROSE 5%-WATER 50 ML IV ONE (09:00)
[2016-09-17] MEDS: [UNRECOGNIZED DRUG - REMARK] MISC SCH (09:00)
[2016-09-17] MEDS: CHOLECALCIFEROL (VIT D3) 5,000 UNITS CAPSULE PO SCH (09:05)
[2016-09-17] MEDS: SERTRALINE HCL 50 MG TABLET PO SCH (09:05)
[2016-09-17] MEDS: TAMSULOSIN HCL 0.4 MG CAPSULE PO SCH (09:05)
[2016-09-17] MEDS: POTASSIUM CHL 10 MEQ/WATER 50 ML IV SCH ×8 (09:16→22:04)
[2016-09-17 09:23] LABS: PLATELET COUNT (AUTO) 21 K/uL (150-450)
[2016-09-17] MEDS ORDERED: POTASSIUM CHL 10 MEQ/WATER 50 ML IV ONE ×7 (09:30→15:30)
[2016-09-17] MEDS: POVIDONE-IODINE 10% 120 ML SOLUTION TP SCH (10:18)
[2016-09-17 11:26] VITALS: BP 135/75
[2016-09-17 16:06] VITALS: BP 130/71
[2016-09-17 18:07] LABS: GLUCOSE,POINT OF CARE 114 MG/DL (70-110)
[2016-09-17 18:17] LABS: GLUCOSE,POINT OF CARE 101 MG/DL (70-110)
[2016-09-17 20:06] VITALS: BP 114/68
[2016-09-17] MEDS: MIRTAZAPINE 15 MG TABLET PO SCH (20:31)
[2016-09-17 21:47] LABS: GLUCOSE,POINT OF CARE 111 MG/DL (70-110)
[2016-09-17 23:42] VITALS: BP 144/70
[2016-09-18] MEDS ORDERED: POTASSIUM CHLORIDE 20 MEQ ER TABLET PO ONE (00:15)
[2016-09-18] MEDS ORDERED: POTASSIUM CHL 20 MEQ/0.9% NS 1,000 ML IV ONE (00:30)
[2016-09-18] MEDS: PANTOPRAZOLE SODIUM 80 MG in SODIUM CHLORIDE 0.9% 100 ML IV SCH ×2 (00:31→13:27)
[2016-09-18] MEDS: ALBUTEROL SULFATE 2.5 MG/0.5 ML NEB SOLUTION NEB SCH ×3 (02:26→13:33)
[2016-09-18] MEDS: IPRATROPIUM BROMIDE 0.5 MG/2.5 ML NEB SOLUTION NEB SCH ×3 (02:26→13:32)
[2016-09-18 05:03] VITALS: BP 147/67
[2016-09-18 06:47] LABS: GLUCOSE,POINT OF CARE 82 MG/DL (70-110)
[2016-09-18 06:58] LABS: EOSINOPHILS % (AUTO) 1.2 % (1.0-6.0); HEMATOCRIT 23.5 % (41-53); HEMOGLOBIN 7.9 g/dL (13.5-17.5); LYMPHOCYTES # (AUTO) 0.2 K/uL (1.0-4.8); LYMPHOCYTES % (AUTO) 4.2 % (22.0-44.0); MEAN CORPUSCULAR HEMOGLOBIN 30.2 pg (26.0-34.0); MEAN CORPUSCULAR HGB CONC 33.8 G/dL (31.0-37.0); MEAN CORPUSCULAR VOLUME 89 fL (80-100); MONOCYTES # (AUTO) 0.3 K/uL (0.1-1.0); MONOCYTES % (AUTO) 6.3 % (2.0-9.0); NEUTROPHILS # (AUTO) 3.9 K/uL (1.8-7.7); PLATELET COUNT (AUTO) 21 K/uL (150-450); RED BLOOD CELL COUNT(AUTO) 2.63 MIL/uL (4.50-5.90); WHITE BLOOD COUNT (AUTO) 4.4 K/uL (4.5-11.0)
[2016-09-18 07:12] LABS: NEUTROPHILS % (AUTO) 88.3 % (40.0-70.0)
[2016-09-18 07:13] VITALS: BP 153/83
[2016-09-18 07:13] LABS: ALBUMIN 1.9 g/dL (3.4-5.0); BILIRUBIN,TOTAL 0.6 mg/dL (0.1-1.0); CALCIUM, TOTAL 7.6 mg/dL (8.8-10.5); CREATININE 5.37 mg/dL (0.60-1.30); MAGNESIUM 1.8 mg/dL (1.80-2.40); TOTAL PROTEIN, SERUM 4.8 g/dL (6.4-8.2)
[2016-09-18 07:29] LABS: POTASSIUM 2.7 mmol/L (3.5-5.1)
[2016-09-18 07:48] LABS: INR 1.5 (0.9-1.1); PROTHROMBIN TIME 15.4 SEC (9.4-11.6)
[2016-09-18] MEDS: [UNRECOGNIZED DRUG - REMARK] MISC SCH (09:00)
[2016-09-18] MEDS ORDERED: EPOETIN ALFA 10,000 UNITS/ML 2 ML VIAL SQ SCH (09:00)
[2016-09-18] MEDS ORDERED: HEPARIN SODIUM,PORCINE 1,000 UNITS/ML VIAL IVP ONE ×2 (11:00)
[2016-09-18] MEDS ORDERED: MANNITOL 25%-12.5 GM/50 ML VIAL IVP PRN (11:00)
[2016-09-18] MEDS ORDERED: ALBUMIN HUMAN 25%-12.5GM/50ML IV BOTTLE IV PRN (11:00)
[2016-09-18 11:27] VITALS: BP 127/94
[2016-09-18] MEDS: TAMSULOSIN HCL 0.4 MG CAPSULE PO SCH (13:26)
[2016-09-18] MEDS: CHOLECALCIFEROL (VIT D3) 5,000 UNITS CAPSULE PO SCH (13:26)
[2016-09-18] MEDS: SERTRALINE HCL 50 MG TABLET PO SCH (13:26)
[2016-09-18] MEDS: POVIDONE-IODINE 10% 120 ML SOLUTION TP SCH (13:27)
[2016-09-18] MEDS ORDERED: 0.9% SODIUM CHLORIDE 10 ML SYRINGE IVP PRN (14:00)
[2016-09-18] MEDS ORDERED: LIDOCAINE HCL 1% 10 ML VIAL SQ ONE (14:00)
[2016-09-18 15:55] VITALS: BP 144/75
[2016-09-19 02:07] LABS: GLUCOSE,POINT OF CARE 91 MG/DL (70-110)
[2016-09-19 02:11] LABS: GLUCOSE COMMENT 1 Received Meds; GLUCOSE,POINT OF CARE 85 MG/DL (70-110)
== END 2016-09-18 18:47 | DRG 871 ==
LOC: EMS 05:48 → AHU 10:14 → 5S 11:54 → ICU 09-10 10:20 → 5S 09-16 14:45
PROVIDERS: ADMIT Hospitalist; ATTEND Hospitalist
PROC: 5A12012 Performance of Cardiac Output, Single, Manual (ICD-10-PCS; principal; 2016-09-10)
PROC: 0BH17EZ Insertion of Endotracheal Airway into Trachea, Via Natural or Artificial Opening (ICD-10-PCS; 2016-09-10)
PROC: 5A1945Z Respiratory Ventilation, 24-96 Consecutive Hours (ICD-10-PCS; 2016-09-10)
PROC: 0YH733Z Insertion of Infusion Device into Right Femoral Region, Percutaneous Approach (ICD-10-PCS; 2016-09-10)
PROC: 04HY32Z Insertion of Monitoring Device into Lower Artery, Percutaneous Approach (ICD-10-PCS; 2016-09-10)
PROC: 5A1D60Z (ICD-10-PCS; 2016-09-13)
DX: A41.9 Sepsis, unspecified organism (principal); G93.40 Encephalopathy, unspecified; I46.9 Cardiac arrest, cause unspecified; N18.6 End stage renal disease; J18.9 Pneumonia, unspecified organism; J96.01 Acute respiratory failure with hypoxia; E44.0 Moderate protein-calorie malnutrition; I12.0 Hypertensive chronic kidney disease with stage 5 chronic kidney disease or end stage renal disease; M86.60 Other chronic osteomyelitis, unspecified site; R57.9 Shock, unspecified; D61.818 Other pancytopenia; E87.2 Acidosis; K86.1 Other chronic pancreatitis; K92.2 Gastrointestinal hemorrhage, unspecified; J90 Pleural effusion, not elsewhere classified; E87.6 Hypokalemia; E11.21 Type 2 diabetes mellitus with diabetic nephropathy; E11.69 Type 2 diabetes mellitus with other specified complication; E88.09 Other disorders of plasma-protein metabolism, not elsewhere classified; D69.6 Thrombocytopenia, unspecified; I27.2 Other secondary pulmonary hypertension; K52.9 Noninfective gastroenteritis and colitis, unspecified; B96.5 Pseudomonas (aeruginosa) (mallei) (pseudomallei) as the cause of diseases classified elsewhere; I44.0 Atrioventricular block, first degree; E11.22 Type 2 diabetes mellitus with diabetic chronic kidney disease; J45.909 Unspecified asthma, uncomplicated; N40.0 Benign prostatic hyperplasia without lower urinary tract symptoms; D64.9 Anemia, unspecified; L89.152 Pressure ulcer of sacral region, stage 2; Z88.8 Allergy status to other drugs, medicaments and biological substances; Z91.013 Allergy to seafood; Z82.49 Family history of ischemic heart disease and other diseases of the circulatory system; Z79.899 Other long term (current) drug therapy; Z99.2 Dependence on renal dialysis; Z89.411 Acquired absence of right great toe; Z68.22 Body mass index [BMI] 22.0-22.9, adult
CPT/HCPCS: 70450; 71260; 74177; 82271; 82784; 82805; 82947; 82962; 83010; 83605; 83615; 83735; 84100; 84132; 84155; 84165; 85379; 85384; 86022; 86334; 86803; 87040; 87070; 87081; 87205; 87324; 87340; 87389; 87449; 90471; 90935; 92526; 92610; 92950; 93005; 93306; 93308; 94002; 94003; 94640; 96365; 96366; 99291; C9113; G0238; J0171; J0461; J0713; J0885; J1644; J2060; J2270; J2704; J3010; J3370; J3475; J3480; J3490; J7030; J7040; J7050; J7060; P9046